=== PATIENT | female | born 1960 | race Caucasian/White ===

== ENCOUNTER → 2017-05-04 | Outpatient (CLI) | payer OTHER ==
--- NOTE | 2017-05-04 20:32 | CT ---
EXAMINATION TYPE: CT abdomen pelvis w con DATE OF EXAM: 05/04/2017 COMPARISON: NONE HISTORY: Left upper quadrant pain x years. CT DLP: 1436.00 mGycm Automated exposure control for dose reduction was used. TECHNIQUE: Helical acquisition of images was performed from the lung bases through the pelvis. CONTRAST: Performed with Oral Contrast and with IV Contrast, patient injected with 100 mL of Omnipaque 300. FINDINGS: Lung bases are clear of consolidation. There is no pleural effusion. Heart size is normal. Liver shows no focal defect. Bile ducts are not dilated. Spleen and pancreas appear normal. There is no adrenal mass. Kidneys show satisfactory contrast opacification. There is no hydronephrosi s. There is no retroperitoneal adenopathy. There is no ascites. I see no intestinal wall thickening. There are no dilated loops. Bladder distends smoothly. There is no sign of a pelvic mass. The appendi x appears normal. I see no bony destructive process. There are some intermediate density areas within the gallbladder that could relate to small gallstone s. IMPRESSION: THERE ARE PROBABLY SOME CHOLESTEROL GALLSTONES. NO DILATED DUCTS. I DO NOT SEE A CAUSE FOR LEFT UPPER QUADRANT PAIN.
== END | disposition home or self-care (01) ==
LOC: RADCTMAIN 17:28
PROVIDERS: ATTEND Family Medicine
DX: R10.12 Left upper quadrant pain (principal)
CPT/HCPCS: 74177; Q9967

== ENCOUNTER → 2017-05-05 | Day surgery (SDC) | payer OTHER ==
[~2017-05-05] MED LIST: GLYCOPYRROLATE 0.2 MG/ML 2 ML VIAL ONE; LACTATED RINGERS 1,000 ML IV SCH; LIDOCAINE 1% INJ 10MG/ML (20 ML MDV) ONE; PROPOFOL 10 MG/ML 20 ML VIAL IV ONE
[2017-05-05 10:57] VITALS: RESP 18; TEMP 97.4
--- NOTE | 2017-05-05 11:41 | P.GSHP ---
History of Present Illness H&P Date: 05/05/17 Chief Complaint: GERD, dysphagia, screening colonoscopy This is a 56-year-old female for from Dr. Singh. Patient rents today for EGD and screening colonoscopy. She's had some mild issues with GERD and dysphagia. Past Medical History Past Surgical History: Hysterectomy Medications and Allergies Home Medications Medication Instructions Recorded Confirmed Type Atorvastatin [Lipitor] 20 mg PO HS 05/05/17 05/05/17 History Cholecalciferol [Vitamin D3] 1 tab PO HS 05/05/17 05/05/17 History Levothyroxine Sodium 25 mcg PO HS 05/05/17 05/05/17 History PARoxetine HCL [Paxil] 40 mg PO HS 05/05/17 05/05/17 History QUEtiapine [SEROquel] 800 mg PO HS 05/05/17 05/05/17 History traZODone HCL 150 mg PO HS 05/05/17 05/05/17 History Allergies Allergy/AdvReac Type Severity Reaction Status Date / Time No Known Allergies Allergy Verified 05/05/17 10:45 Surgical - Exam Vital Signs Temp Pulse Resp BP Pulse Ox 97.4 F L 95 18 128/84 96 05/05/17 10:40 05/05/17 10:40 05/05/17 10:40 05/05/17 10:40 05/05/17 10:40 - General well developed, no distress - Eyes PERRL - ENT normal pinna - Neck no masses - Respiratory normal expansion - Cardiovascular Rhythm: regular - Abdomen Abdomen: soft, non tender Assessment and Plan Plan: Dysphagia, mild GERD. We'll perform EGD. We'll perform screening colonoscopy.
--- NOTE | 2017-05-05 12:07 | P.OP ---
Date of Procedure: 05/05/17 Preoperative Diagnosis: GERD Dysphagia Screening colonoscopy Postoperative Diagnosis: Incomplete colonoscopy, right colon not visualized. Normal colon Mild antral gastritis Procedure(s) Performed: EGD Colonoscopy Implants: Anesthesia: MAC Surgeon: Jimenez Osoroi Pathology: other (Antral) Condition: stable Disposition: PACU Indications for Procedure: Operative Findings: Description of Procedure: The patient's placed on the endoscopy table lateral position. She received IV sedation. The gastroscope placed oropharynx passed in the esophagus and stomach. Scope was then placed through the pylorus. The first and second portion of the duodenum appeared normal. Scope was then brought back the antrum is appeared mildly inflamed. A biopsies performed. The scope was retroflexed and remainder of the stomach appeared normal. There was no hiatal hernia. The GE junction was at 47 is. The distal esophagus appeared normal. The proximal esophagus appeared normal. Scope was withdrawn for patient. Next digital rectal exam performed which revealed no abnormalities. The flexible colonoscope was then placed patient anus passed throughout the colon. The right colon could not be visualized secondary to tortuosity the valve. Scope was withdrawn. The transverse colon, descending colon and sigmoid colon appeared normal. Scope was then brought back the rectum and this appeared normal. Scope was withdrawn for patient.
[2017-05-05 13:23] VITALS: BP 108/69; PULSE 90
--- NOTE | 2017-05-05 15:54 | FL ---
EXAMINATION TYPE: FL barium enema w air contrast DATE OF EXAM: 05/05/2017 COMPARISON: CT abdomen pelvis from yesterday. Admitted for left upper quadrant pain one day earlier. HISTORY: Incomplete colonoscopy earlier today. TECHNIQUE: A double contrast barium enema study is performed. A total of proximate 3 minutes of fluo roscopic time was utilized during procedure. FINDINGS: [facility] [employer] view of the abdomen shows overall non-obstructive bowel gas pattern. No pneumoperito neum is present. Enema study is performed. There is successful filling to the cecum. No evidence of any mass or polyp, obstructing or constricting lesion throughout the colon. Because of redundancy of: Evaluation for po lyps is slightly suboptimal particularly in the right colon. A few scattered tiny diverticula are pre sent. Appendix and terminal ileum was not refluxed are visualized. IMPRESSION: No obstructing neoplasm. Successful filling to cecum noted.
== END ==
LOC: ORWHC2ENDO 10:00
PROVIDERS: ATTEND Surgery
DX: Z12.11 Encounter for screening for malignant neoplasm of colon (principal); Q43.8 Other specified congenital malformations of intestine; K29.50 Unspecified chronic gastritis without bleeding; E78.5 Hyperlipidemia, unspecified; E07.9 Disorder of thyroid, unspecified; Z79.899 Other long term (current) drug therapy
CPT/HCPCS: 88305; 88342; 74280; 43239; J2001; J2704; G0121; 45378